=== PATIENT | female | born 1950 | race Caucasian/White ===

== ENCOUNTER → 2024-07-10 06:19 | Day surgery (SDC) | payer MEDICARE, OTHER, SELFPAY | LOC: GI 06:19 | PROVIDERS: ATTENDING PHYSICIAN Internal Medicine Gastroenterology | DX: K62.5 Hemorrhage of anus and rectum (principal); K64.8 Other hemorrhoids; K57.30 Diverticulosis of large intestine without perforation or abscess without bleeding; K62.89 Other specified diseases of anus and rectum; R13.10 Dysphagia, unspecified; R12 Heartburn; K44.9 Diaphragmatic hernia without obstruction or gangrene; K31.89 Other diseases of stomach and duodenum; K31.A0 Gastric intestinal metaplasia, unspecified; K29.50 Unspecified chronic gastritis without bleeding; B96.81 Helicobacter pylori [H. pylori] as the cause of diseases classified elsewhere | CPT/HCPCS: 45378; 43239; 88305; 88341; 88342 ==

== ENCOUNTER 2024-09-03 14:48 | Emergency (ER) | payer MEDICARE, OTHER, SELFPAY ==
[2024-09-03 14:57] VITALS: BP 151/84
[2024-09-03 15:25] LABS: % Basophils 0.5 % (0-2); % Eosinophils 1.8 % (0-6); % Immature Granulocytes 0.3 % (0-0.5); % Lymphocytes 21.4 % (20.5-51.1); % Monocytes 7.5 % (1.7-9.3); % Neutrophils 68.5 % (42.2-75.2); Absolute Basophils 0.1 10^3/uL (0-0.2); Absolute Eosinophils 0.2 10^3/uL (0-0.7); Absolute Monocytes 0.7 10^3/uL (0.1-0.6); Absolute Neutrophils 6.3 10^3/uL (1.4-6.5); Hematocrit 38.6 % (37.0-47.0); Hemoglobin 13.3 g/dL (12.0-16.0); Mean Corp Hgb Conc. 34.5 g/dL (33.0-37.0); Mean Corpuscular Hgb 29.4 pg (27.0-31.0); Mean Corpuscular Volume 85.4 fL (81.0-99.0); Mean Platelet Volume 9.9 fL (7.4-10.4); Nucleated Red Blood Cells % 0 %; Platelet Count 237 10^3/uL (130-400); Red Blood Cell Count 4.52 10^6/uL (4.20-5.40); Red Cell Dist. Width 12.8 % (11.5-14.5); White Blood Cell Count 9.3 10^3/uL (4.8-10.8)
[2024-09-03 15:35] LABS: ALT (SGPT) 25 U/L (0-35); AST (SGOT) 25 U/L (14-36); Albumin 4.5 g/dl (3.5-5.0); Alkaline Phosphatase 98 U/L (38-126); Blood Urea Nitrogen 17 mg/dl (7-17); Calcium 9.4 mg/dl (8.4-10.2); Carbon Dioxide 29 mmol/L (22-30); Chloride 100 mmol/L (98-107); Glucose 96 mg/dl (70-99); Potassium 4.2 mmol/L (3.5-5.1); Sodium 138 mmol/L (135-145); Total Bilirubin 0.4 mg/dl (0.2-1.3); Total Protein 7.3 g/dl (6.3-8.2); eGFR > 60.00
[2024-09-03 18:39] VITALS: BMI 41.9
[2024-09-03 18:44] VITALS: BP 139/63
--- NOTE | 2024-09-03 19:09 | ED.GENMED ---
History of Present Illness
<Josh Lassiter MD - Last Filed: 09/03/24 19:17>
General
Chief Complaint: Skin Problem
Time Seen by Provider: 09/03/24 18:04
<Johnathan Fonseca MD, Resident - Last Filed: 09/03/24 21:37>
History of Present Illness
History of Present Illness:
74-year-old female who presents complaining of right leg swelling, warmth and redness starting more than 2 weeks ago. She mentions symptoms occurred after a spa session in [facility] which used mud. After returning back (August 19) she visited her
family doctor in [place] and received a full course of antibiotics for 7 days. Mentions symptoms somewhat improved but not completely. Denies fever. Denies history of blood clots. Longest flight from [facility] [place] to [place] was 10 [place]. Also
mentions back pain and bilateral proximal lower extremity pain that shoots down the legs. Denies shortness of breath or chest pain.
Past History
<Johnathan Fonseca MD, Resident - Last Filed: 09/03/24 21:37>
Past History
ED Past Medical History: Other; Negative IDDM or NIDDM
ED Past Surgical History: None
Social History
Tobacco: Non-smoker
Alcohol: None
Drug: None
Personal:
Living: with family
Review of Systems
<Johnathan Fonseca MD, Resident - Last Filed: 09/03/24 21:37>
Review of Systems
Allergies reviewed?: Yes
All Other Systems: ROS reviewed and negative except as documented in HPI and ROS
Phy Exam
<Johnathan Fonseca MD, Resident - Last Filed: 09/03/24 21:37>
General Physical Exam
General Presentation: well appearing and mild distress
Cardiovascular Exam
Cardiovascular Exam: regular rate/rhythm, no gallop, no JVD, no murmur and other (1+ lle edema, 2+ rle edema)
Pulmonary Exam
Pulmonary Exam: lungs clear, no respiratory distress, no crackles and no wheezing
Gastrointestinal Exam
Gastrointestinal Exam: normal bowel sounds, non tender, soft, no organomegaly, non distended and no cva tenderness
Neurological Exam
Neurological Exam: alert, oriented x3, CN II-XII intact, no motor deficits and normal reflexs
Musculoskeletal Exam
Musculoskeletal Exam: full ROM and edema (1+LLE, 2+ RLE, pitting )
Course
<Josh Lassiter MD - Last Filed: 09/03/24 19:17>
Orders/Labs/Results
Orders:
Orders
09/03/24 15:14
Complete Blood Count/With Diff Urgent
Comprehensive Metabolic Panel Urgent
09/03/24 18:29
US Periph Venous LOWER Ext RT Urgent
Comment:
Reason For Exam: r leg swelling
Abnormal Lab Results
09/03/24
15:14
Absolute Monos (auto) 0.7 H 10^3/uL
(0.1-0.6)
09/03/24 15:14
09/03/24 15:14
Vital Signs
Initial and Last Documented VS:
Initial Vital Signs
Temp Pulse Resp BP Pulse Ox
98.2 F 81 16 151/84 99
09/03/24 14:57 09/03/24 14:57 09/03/24 14:57 09/03/24 14:57 09/03/24 14:57
Last Documented Vital Signs
Temp Pulse Resp BP Pulse Ox
98.2 F 75 16 136/64 96
09/03/24 14:57 09/03/24 20:25 09/03/24 20:25 09/03/24 20:25 09/03/24 20:25
<Johnathan Fonseca MD, Resident - Last Filed: 09/03/24 21:37>
Orders/Labs/Results
Orders:
Orders
09/03/24 15:14
Complete Blood Count/With Diff Urgent
Comprehensive Metabolic Panel Urgent
09/03/24 18:29
US Periph Venous LOWER Ext RT Urgent
Comment:
Reason For Exam: r leg swelling
Abnormal Lab Results
09/03/24
15:14
Absolute Monos (auto) 0.7 H 10^3/uL
(0.1-0.6)
09/03/24 15:14
09/03/24 15:14
Vital Signs
Initial and Last Documented VS:
Initial Vital Signs
Temp Pulse Resp BP Pulse Ox
98.2 F 81 16 151/84 99
09/03/24 14:57 09/03/24 14:57 09/03/24 14:57 09/03/24 14:57 09/03/24 14:57
Last Documented Vital Signs
Temp Pulse Resp BP Pulse Ox
98.2 F 75 16 136/64 96
09/03/24 14:57 09/03/24 20:25 09/03/24 20:25 09/03/24 20:25 09/03/24 20:25
<Johnathan Fonseca MD, Resident - Last Filed: 09/03/24 21:37>
*Critical Care Note
Total Time (30-74mins, 75-104mins- exclusive of procedures): Not Applicable
ED Attending Note
<Josh Lassiter MD - Last Filed: 09/03/24 19:17>
ED Attending Note
Patient seen and examined by attending physician: Yes
ED Attending Note:
Patient presents to ED secondary to continual bilateral hip pain radiating down both legs over the past 2 weeks. Denies fever or chills. Denies urinary or bowel incontinence. Denies direct trauma. Denies loss of sensation or weakness. Patient
feels as if her legs are more swollen and warm to touch. Patient has recently traveled to [facility] on vacation recently. In addition, patient has completed 7-day course of antibiotics, as prescribed by her primary care physician with concern for
possible lower leg cellulitis. Denies fever or chills. Denies nausea or vomiting. Of note, patient has had lower back pain in the past, which sometimes improves when she does stretching against a wall.
Physical Exam
General: no apparent distress, not acutely ill. afebrile
Head: nc/at. eomi
Neck: supple. normal range of motion.
Abdomen: normal bowel sounds. not tender.
Back: no midline tenderness. Back: no midline tenderness.
Neuro: alert and oriented. no focal neurological deficits
Skin: no rash
Psychiatric: well kept. interactive and cooperative
Extremities: no edema. no calf tenderness. mild b/l lateral hip tenderness to palpation
History and exam inconsistent with cellulitis. In light of recent travel overseas, I believe is reasonable to perform ultrasound to evaluate for potential blood clots. If not, patient will be treated supportively, with recommendation to follow-up
with her primary care physician for an outpatient consultation, including potential MRI lower spine, especially if symptoms persist.
<Johnathan Fonseca MD, Resident - Last Filed: 09/03/24 21:37>
-
Portions of this chart may have been created with voice recognition software.� Occasional wrong word or��sound alike� substitutions may have occurred due to the inherent limitations of voice recognition software.
Discharge Plan
Departure
Patient Disposition: Home (Routine Discharge)
Date of Disposition: 09/03/24
Time of Disposition: 20:15
Patient with high blood pressure during this ER visit?: No
Condition: Good
Discharge Problem:
Back pain of lumbar region with sciatica, Right leg swelling
Instructions: Low back pain in adults, Lowering the risk of a blood clot
Prescriptions:
No Action
prednisone 50 MG tablet
50 mg PO DAILY Qty: 5 0RF
albuterol sulfate [Proventil HFA] 90 MCG/PUFF HFA aerosol inhaler
1 puff inhalation Q4HPRN PRN (Reason: shortness of breath) Qty: 1 0RF
prednisone 50 mg tablet
50 mg PO DAILY 5 Days Qty: 5 0RF
albuterol sulfate [ProAir HFA] 90 mcg/actuation HFA aerosol inhaler
1 puff inhalation Q4HPRN PRN (Reason: shortness of breath) Qty: 6.7 0RF
dextromethorphan polistirex [Robitussin ER] 30 mg/5 mL suspension,extended rel 12 hr
10 ml PO Q12H Qty: 200 0RF
albuterol sulfate 2.5 mg /3 mL (0.083 %) solution for nebulization
2.5 mg inhalation QID PRN (Reason: shortness of breath or wheezing) Qty: 75 0RF
Referrals:
UNKNOWN - PT DOES,NOT KNOW [Family Provider] -
Activity Restrictions/Additional Instructions:
The ultrasound of your right leg did not show any signs of acute thrombosis. Keep feet clean and dry. Keep legs elevated. When you go back to [place] in September, please ask your family doctor for MRI of back.
Interventions
Interventions:
*Risk Screen - Suicide Last Done: 09/03/24 14:57
*General Assessment Last Done: 09/03/24 14:57
*Neglect/Abuse Screening Last Done: 09/03/24 14:57
ED- Fall Risk Assessment Last Done: 09/03/24 18:44
*ED COVID-19 Vaccine History Last Done: 09/03/24 18:40
*Nursing Disposition Last Done: 09/03/24 20:29
Discharge Date and Time
Discharge Date/Time: 09/03/24 20:30
Print Language: IRISH
[2024-09-03 20:25] VITALS: BP 136/64
== END 2024-09-03 20:30 | disposition home or self-care (01) ==
LOC: EMR 14:48
PROVIDERS: Emergency Medicine; EMERGENCY PHYSICIAN Emergency Medicine
DX: M54.41 Lumbago with sciatica, right side (principal); R22.41 Localized swelling, mass and lump, right lower limb
CPT/HCPCS: 99284; 80053; 85025; 93971